=== PATIENT | male | born 1950 | race Caucasian/White ===

== ENCOUNTER 2021-12-07 19:48 | Emergency (ER) | payer OTHER, MEDICARE | END 2021-12-07 22:35 | disposition home or self-care (01) | LOC: ERS 19:48 | DX: S01.01XA Laceration without foreign body of scalp, initial encounter (principal); S51.012A Laceration without foreign body of left elbow, initial encounter; F10.129 Alcohol abuse with intoxication, unspecified; I10 Essential (primary) hypertension; E78.5 Hyperlipidemia, unspecified; E78.00 Pure hypercholesterolemia, unspecified; F17.210 Nicotine dependence, cigarettes, uncomplicated; W01.0XXA Fall on same level from slipping, tripping and stumbling without subsequent striking against object, initial encounter; Y92.838 Other recreation area as the place of occurrence of the external cause; Z79.01 Long term (current) use of anticoagulants; Z79.899 Other long term (current) drug therapy | CPT/HCPCS: 70450; 72125 ==

== ENCOUNTER 2022-11-11 17:16 | Inpatient (IN) | payer MEDICARE ==
[~2022-11-11 17:16] MED LIST: Iopamidol 370 76% 100 ML VIAL ONE
[2022-11-11 19:11] VITALS: BMI 19.1
[2022-11-11 20:21] LABS: #Basophils 0.1 thou/uL (0.0-0.2); #Eosinphils 0.1 thou/uL (0.0-0.7); #Lymphocytes 1.6 thou/uL (1.20-3.40); #Monocytes 0.9 thou/uL (0.11-0.59); %Basophils 0.8 % (0.0-1.0); %Eosinophils 0.6 % (0.0-10.0); %Lymphocytes 16.3 % (21.0-51.0); %Monocytes 9.3 % (0.0-10.0); %Neutrophils 73.1 % (42.0-75.0); Hemoglobin 11.2 g/dL (14.0-18.0); Mean Corpuscular HGB CONC 30.9 g/dL (32.0-36.0); Mean Corpuscular Hemoglobin 25.4 pg (27.0-31.0); Mean Corpuscular Volume 82.3 fl (78.0-98.0); Mean Platelet Volume 8.2 fL (7.4-10.4); Platelet Count 302 10x3/uL (130-400); RBC Distribution Width 18.9 % (11.5-14.5); Red Blood Cell (RBC) Count 4.41 mill/uL (4.70-6.10); White Blood Cell (WBC) Count 9.6 10x3/uL (4.8-10.8)
[2022-11-11 20:44] LABS: Anion Gap 14 mmol/L (10-20); BUN (Urea Nitrogen) 14 mg/dL (8.4-25.7); Calc. Creatinine Clearance 58 mL/min (70-130); Calcium 8.4 mg/dL (7.8-10.44); Carbon Dioxide 20 mmol/L (23-31); Chloride 106 mmol/L (98-107); Estimated GFR 97; Glucose 105 mg/dL (80-115); Potassium 4.7 mmol/L (3.5-5.1); Sodium 135 mmol/L (136-145)
[2022-11-11 21:05] LABS: Troponin I 5.781 ng/mL (< 0.028)
[2022-11-11] MEDS ORDERED: Communication Order-Pharmacy FS ONE (21:54)
[2022-11-11 22:59] LABS: Platelet Count 290 10x3/uL (130-400)
[2022-11-11 23:44] LABS: Troponin I 8.255 ng/mL (< 0.028)
[2022-11-12] MEDS ORDERED: Ipratropium/Albuterol 3 ML NEB NEB SCH (01:00)
[2022-11-12] MEDS: Mometasone 100 MCG/Formoterol 5 MCG 120 PUFF INHALER INH SCH ×2 (07:29→18:36)
[2022-11-12] MEDS: Albuterol 200 PUFF (6.7GM INHALER) INH SCH ×4 (07:29→23:16)
[2022-11-12] MEDS: Ipratropium 200 Puff Oral Inhaler INH SCH ×4 (07:30→23:17)
[2022-11-12] MEDS: Lisinopril 5 MG TAB PO SCH (09:33)
[2022-11-12] MEDS: Aspirin 325 mg Enteric Coated Tablet PO SCH (09:33)
[2022-11-12] MEDS: Carvedilol 6.25 MG TAB PO SCH ×2 (09:33→16:34)
[2022-11-12] MEDS ORDERED: Sodium Chloride 0.9% 1,000 ML IV SCH (13:15)
[2022-11-12] MEDS: Atorvastatin Calcium 40 MG TAB PO SCH (20:55)
[2022-11-12] MEDS ORDERED: diphenhydrAMINE 25 MG CAP PO SCH (23:45)
[2022-11-13 04:13] LABS: Hemoglobin 10.5 g/dL (14.0-18.0); Mean Corpuscular HGB CONC 29.7 g/dL (32.0-36.0); Mean Corpuscular Hemoglobin 24.5 pg (27.0-31.0); Mean Corpuscular Volume 82.8 fl (78.0-98.0); Mean Platelet Volume 8.7 fL (7.4-10.4); Platelet Count 313 10x3/uL (130-400); RBC Distribution Width 18.7 % (11.5-14.5); Red Blood Cell (RBC) Count 4.29 mill/uL (4.70-6.10); White Blood Cell (WBC) Count 10.2 10x3/uL (4.8-10.8)
[2022-11-13 04:33] LABS: Anion Gap 13 mmol/L (10-20); BUN (Urea Nitrogen) 9 mg/dL (8.4-25.7); Calc. Creatinine Clearance 66 mL/min (70-130); Calcium 8.5 mg/dL (7.8-10.44); Carbon Dioxide 22 mmol/L (23-31); Chloride 104 mmol/L (98-107); Estimated GFR 101; Glucose 92 mg/dL (80-115); Potassium 3.8 mmol/L (3.5-5.1); Sodium 135 mmol/L (136-145)
[2022-11-13 06:40] LABS: #Basophils 0.1 thou/uL (0.0-0.2); #Eosinphils 0.1 thou/uL (0.0-0.7); #Lymphocytes 1.7 thou/uL (1.20-3.40); #Monocytes 1.3 thou/uL (0.11-0.59); #Neutrophils 7.1 thou/uL (1.40-6.50); %Basophils 0.6 % (0.0-1.0); %Eosinophils 0.8 % (0.0-10.0); %Lymphocytes 16.4 % (21.0-51.0); %Monocytes 12.9 % (0.0-10.0); %Neutrophils 69.3 % (42.0-75.0); Anisocytosis SLIGHT = 6-15 cells (100X) (0-5/hpf); Crenated RBC SLIGHT = 1-5 cells (100X) (None Seen); Hypochromia SLIGHT = 6-15 cells (100X) (0-5/hpf); MDiff Complete? YES; Platelet Morphology Comment Appears Adequate; Poikilocytosis SLIGHT = 6-15 cells (100X) (0-5/hpf); Polychromasia SLIGHT = 2-3 cells (100X) (0-2/hpf)
[2022-11-13] MEDS: Albuterol 200 PUFF (6.7GM INHALER) INH SCH ×4 (07:28→23:33)
[2022-11-13] MEDS: Ipratropium 200 Puff Oral Inhaler INH SCH ×4 (07:28→23:33)
[2022-11-13] MEDS: Mometasone 100 MCG/Formoterol 5 MCG 120 PUFF INHALER INH SCH ×2 (07:29→19:08)
[2022-11-13] MEDS: Lisinopril 5 MG TAB PO SCH (07:40)
[2022-11-13] MEDS: Carvedilol 6.25 MG TAB PO SCH (07:41)
[2022-11-13] MEDS: Aspirin 325 mg Enteric Coated Tablet PO SCH (07:41)
[2022-11-13] MEDS ORDERED: diphenhydrAMINE 25 MG CAP PO SCH (21:00)
[2022-11-13] MEDS: Atorvastatin Calcium 40 MG TAB PO SCH (21:11)
[2022-11-14] MEDS: Mometasone 100 MCG/Formoterol 5 MCG 120 PUFF INHALER INH SCH (07:19)
[2022-11-14] MEDS: Ipratropium 200 Puff Oral Inhaler INH SCH (07:21)
[2022-11-14] MEDS: Albuterol 200 PUFF (6.7GM INHALER) INH SCH (07:21)
[2022-11-14 07:51] VITALS: BP 105/66; TEMP 98.1
[2022-11-14] MEDS ORDERED: Aspirin 81 mg Enteric Coated Tablet PO SCH (09:00)
[2022-11-14 09:10] LABS: #Basophils 0.1 thou/uL (0.0-0.2); #Eosinphils 0.2 thou/uL (0.0-0.7); #Lymphocytes 1.3 thou/uL (1.20-3.40); #Monocytes 1.2 thou/uL (0.11-0.59); #Neutrophils 5.8 thou/uL (1.40-6.50); %Basophils 0.6 % (0.0-1.0); %Eosinophils 2.2 % (0.0-10.0); %Lymphocytes 14.8 % (21.0-51.0); %Monocytes 14.1 % (0.0-10.0); %Neutrophils 68.3 % (42.0-75.0); Hemoglobin 10.6 g/dL (14.0-18.0); Mean Corpuscular HGB CONC 30.4 g/dL (32.0-36.0); Mean Corpuscular Hemoglobin 25.1 pg (27.0-31.0); Mean Corpuscular Volume 82.5 fl (78.0-98.0); Mean Platelet Volume 8.5 fL (7.4-10.4); Platelet Count 319 10x3/uL (130-400); RBC Distribution Width 18.8 % (11.5-14.5); Red Blood Cell (RBC) Count 4.23 mill/uL (4.70-6.10); White Blood Cell (WBC) Count 8.5 10x3/uL (4.8-10.8)
[2022-11-14 09:20] LABS: Anion Gap 11 mmol/L (10-20); BUN (Urea Nitrogen) 10 mg/dL (8.4-25.7); Calc. Creatinine Clearance 64 mL/min (70-130); Calcium 8.8 mg/dL (7.8-10.44); Carbon Dioxide 25 mmol/L (23-31); Chloride 102 mmol/L (98-107); Estimated GFR 99; Glucose 113 mg/dL (80-115); Sodium 134 mmol/L (136-145)
== END 2022-11-14 11:58 | disposition home or self-care (01) | DRG 281 ==
LOC: INTOOBSV 17:26 → 2NO 17:26 → CCU 20:14 → 2NO 20:14 → OBSVTOIN 11-12 10:16
PROVIDERS: ADMIT Internal Medicine; ATTEND Internal Medicine
DX: I21.4 Non-ST elevation (NSTEMI) myocardial infarction (principal); C34.90 Malignant neoplasm of unspecified part of unspecified bronchus or lung; I50.22 Chronic systolic (congestive) heart failure; I42.0 Dilated cardiomyopathy; I25.5 Ischemic cardiomyopathy; J44.9 Chronic obstructive pulmonary disease, unspecified; E78.5 Hyperlipidemia, unspecified; I11.0 Hypertensive heart disease with heart failure; I44.7 Left bundle-branch block, unspecified; Z95.810 Presence of automatic (implantable) cardiac defibrillator; Z79.899 Other long term (current) drug therapy; Z79.02 Long term (current) use of antithrombotics/antiplatelets; Z95.5 Presence of coronary angioplasty implant and graft
CPT/HCPCS: 36415; 71275; 80048; 85025; 93306; 94640; 94760; 96372; G0378; J1650; J7620; Q9967